=== PATIENT | female | born 1950 | race Hispanic/Latino ===

== ENCOUNTER → 2017-09-12 | Outpatient (CLI) | payer MEDICARE ==
[~2017-09-12] MED LIST: VASOTEC10 MG PO
--- NOTE | 2017-09-12 11:08 | Diagnostic Imaging Report ---
PROCEDURE:CHEST 2 VIEWS TECHNIQUE:PA and lateral chest INDICATION:Asthma COMPARISON:Patients [facility], , CHEST 2 VIEWS, 08/16/2016, 12:20. FINDINGS: Lungs are clear and symmetrically inflated. No pleural effusions. Normal heart size, mediastinal contour and pulmonary vasculature. Intact skeleton. CONCLUSION: No acute abnormality or interval change from August 2016. Dictated by: Kevin Sevilla M.D. on 09/12/2017 at 11:09 Electronically approved by: Kevin Sevilla M.D. on 09/12/2017 at 11:09
--- NOTE | 2017-09-12 11:09 | Diagnostic Imaging Report ---
PROCEDURE:HIPS BILAT 3-4VWS (+/- PELVIS) TECHNIQUE:AP pelvis with AP and oblique views of each hip INDICATION:Bilateral hip pain COMPARISON:None. FINDINGS: The pelvis, hips and regional skeleton are intact and in anatomic alignment. Joint space is maintained. No periosteal reaction or erosion. CONCLUSION: No acute abnormality. Dictated by: Kevin Sevilla M.D. on 09/12/2017 at 11:10 Electronically approved by: Kevin Sevilla M.D. on 09/12/2017 at 11:10
== END | disposition home or self-care (01) ==
LOC: RAD 10:14
PROVIDERS: ATTEND Family Medicine
DX: R06.02 Shortness of breath (principal); M25.552 Pain in left hip; M25.551 Pain in right hip
CPT/HCPCS: 71046; 73522

== ENCOUNTER → 2017-11-13 | Outpatient (CLI) | payer MEDICARE, OTHER ==
[~2017-11-13] MED LIST changes: +ALBUTEROL/IPRATROPIUM 3 ML NEB ONE
--- NOTE | 2017-11-13 10:31 | Diagnostic Imaging Report ---
PROCEDURE:CT CHEST WITHOUT CONTRAST COMPARISON:[facility], DX, CHEST 2 VIEWS, 09/12/2017, 11:40. INDICATIONS:Asthma and pneumonia TECHNIQUE: Routine protocol Volumetric CT chest. No intravenous or enteric contrast. Multiplanar reformatted images. DLP: 418.88 FINDINGS: Lungs: Minimal dependent bibasilar subsegmental atelectasis. 2 right middle lobe nodules (images 58 and 60, series 3) the largest measuring 0.4 cm. Lungs otherwise clear. Airways: Expiration phase imaging. Mild distal bronchial wall thickening (for example left lower lobe image 58, series 3). Pleura: Normal Lymph nodes: Normal Pulmonary arteries: Vein diameter 2.5 cm. Mild intraparenchymal pulmonary artery prominence relative to the bronchus. Thoracic aorta and great vessels: Normal caliber. Mild arch atherosclerosis. Heart and pericardium: Upper limits of normal heart size. Prominent pericardial fat pads. Otherwise, normal. No pleural effusion. Mild left coronary artery calcification. Subdiaphragmatic organs: Calcified 0.9 cm splenic artery aneurysm. Imaged portions are otherwise normal. Skeleton: Intact. Mild multilevel degenerative disc disease. CONCLUSION: 1. Mild bronchial wall thickening which may be secondary to reactive airways disease or bronchitis. No evidence of pneumonia. 2. Sub-5 mm right middle lobe pulmonary nodules. These are nonspecific, without needed followup according to 2017 Fleischner society guidelines. 3. Mild intraparenchymal pulmonary artery prominence suggesting pulmonary hypertension. Dictated by: Kevin Sevilla M.D. on 11/13/2017 at 10:34 Electronically approved by: Kevin Sevilla M.D. on 11/13/2017 at 10:34
== END ==
LOC: CT 09:20
PROVIDERS: ATTEND Internal Medicine
DX: J45.40 Moderate persistent asthma, uncomplicated (principal); Z87.01 Personal history of pneumonia (recurrent)
CPT/HCPCS: 71250; 93005; 94060; 94727; 94729

== ENCOUNTER → 2018-03-23 | Outpatient (CLI) | payer MEDICARE, OTHER ==
[~2018-03-23] MED LIST changes: -ALBUTEROL/IPRATROPIUM 3 ML NEB ONE
--- NOTE | 2018-03-23 12:40 | Diagnostic Imaging Report ---
EXAMINATION: Transabdominal pelvic ultrasound. CLINICAL INDICATION: Pelvic and perineal pain COMPARISON: None DISCUSSION: Transverse and sagittal transabdominal images of the pelvis were obtained using the urinary bladder as a sonographic window. The uterus is neutral in position and normal in size measuring 9.1 x 2.8 x 4.7 cm. The endometrial stripe is homogeneous, normal in thickness and measures 0.2 centimeters. The ovaries are normal in size and echogenicity. The right ovary measures 2.3 x 1.1 x 1.2 centimeters. The left ovary measures 1.5 x 0.9 x 1.4 centimeters. No free fluid or pelvic masses are seen. IMPRESSION: Unremarkable pelvic ultrasound. Signed by: Dr. Damion Meyer M.D. on 03/23/2018 12:37 PM
== END ==
LOC: US 11:32
PROVIDERS: ATTEND Internal Medicine Cardiovascular Disease
DX: R10.2 Pelvic and perineal pain (principal)
CPT/HCPCS: 76856

== ENCOUNTER → 2018-04-12 | Outpatient (CLI) | payer MEDICARE, OTHER ==
--- NOTE | 2018-04-12 13:22 | Diagnostic Imaging Report ---
SACRUM AND COCCYX X-RAY - 4 VIEWS HISTORY: ^[id number] ^1215 ^Radiculopathy, thoracolumbar region COMPARISON: None available. FINDINGS: Bones: No acute displaced fracture. Osseous alignment is within normal limits. Joints: Moderate degenerative changes at L5-S1. Mild degenerative changes of the sacroiliac joints. The sacrum and coccyx appear unremarkable. Soft tissues: Facet arthrosis at L5-S1 resulting in foraminal narrowing. IMPRESSION: Moderate degenerative changes of facet arthrosis at L5-S1. Degenerative changes of the sacroiliac joints. No acute fractures of the sacrum or coccyx. Signed by: Dr. Rin Fernandez M.D. on 04/12/2018 1:18 PM
== END ==
LOC: RAD 11:03
PROVIDERS: ATTEND Family Medicine
DX: M54.15 Radiculopathy, thoracolumbar region (principal)
CPT/HCPCS: 72220

== ENCOUNTER → 2019-08-07 | Day surgery (SDC) | payer MEDICARE, OTHER ==
[2019-08-05 14:09] LABS: BASOPHILS % 0.6 % (0.0-1.0); EOSINOPHILS # (AUTO) 0.2 (0.0-0.4); EOSINOPHILS % 2.5 % (0.0-6.0); HEMATOCRIT 39.7 % (34.2-44.1); HEMOGLOBIN 12.6 g/dL (12.0-16.0); LYMPHOCYTES # (AUTO) 2.4 (1.0-3.2); LYMPHOCYTES % 36.2 % (18.0-39.1); MEAN CORPUSCULAR HEMOGLOBIN 29.2 pg (28-32); MEAN CORPUSCULAR HGB CONC 31.7 g/dL (31-35); MEAN CORPUSCULAR VOLUME 92.1 fL (81-99); MONOCYTES # (AUTO) 0.5 (0.2-0.8); MONOCYTES % 7.7 % (4.4-11.3); NEUTROPHILS # (AUTO) 3.4 (2.1-6.9); NEUTROPHILS % 52.7 % (38.7-80.0); PLATELET COUNT 247 x10e3/uL (140-360); RED BLOOD COUNT 4.31 x10e6/uL (3.6-5.1); RED CELL DISTRIBUTION WIDTH 13.8 % (11.7-14.4)
[2019-08-05 14:21] LABS: INR 0.95; PROTHROMBIN TIME 13.2 seconds (11.9-14.5)
[2019-08-05 14:22] LABS: PARTIAL THROMBOPLASTIN TIME 32.5 seconds (23.8-35.5)
[2019-08-05 14:28] LABS: ALANINE AMINOTRANSFERASE 20 IU/L (0-55); ALBUMIN 3.5 g/dL (3.5-5.0); ALBUMIN/GLOBULIN RATIO 0.9 (0.8-2.0); ALKALINE PHOSPHATASE 83 IU/L (40-150); ANION GAP 10.4 mmol/L (8-16); BLOOD UREA NITROGEN 15 mg/dL (7-26); BUN/CREATININE RATIO 18 (6-25); CALCIUM 9.5 mg/dL (8.4-10.2); CARBON DIOXIDE 31 mmol/L (22-29); CHLORIDE 105 mmol/L (98-107); CREATININE, SERUM 0.84 mg/dL (0.57-1.11); EST GLOMERULAR FILTRATION RATE > 60 ML/MIN (60-); GLUCOSE 90 mg/dL (74-118); POTASSIUM 4.4 mmol/L (3.5-5.1); SODIUM 142 mmol/L (136-145)
[2019-08-05 14:39] LABS: CHOL/HDL RATIO 4.1 (3.0-3.6)
[2019-08-07] VITALS (8 sets, daily range): BP systolic 128–156; BP diastolic 75–88
[~2019-08-07] VITALS: Ht 157.5 cm; Wt 93.4 kg
[~2019-08-07] MED LIST changes: +FENTANYL CITRATE/PF 100MCG/2 ML INJ ONE; +HEPARIN SOD/SOD CHLORIDE 2,000 ML ONE; +IOPAMIDOL 370 MG/ML 200 ML INFUS..BTL INJ ONE; +LIDOCAINE HCL 2% LOCAL 20 ML VIAL ONE; +LISINOPRIL10 MG PO; +METOPROLOL SUCC25 MG PO; +MIDAZOLAM HCL 2 MG/2 ML VIAL ONE; +SODIUM CHLORIDE 0.9% 1000ML 1,000 ML ONE; +VERAPAMIL HCL 2.5 MG/ML 2 ML VIAL ONE
--- OUTSIDE RECORDS SUMMARY | 2019-08-07 08:17 | XMS REPORT ---
Author Author [facility] Address Unknown Phone Unavailable Care Team Providers Care Flue Blower Name Role Phone BRAXTON BRADYH Unavailable Unavailable DEBBIE BRADY Unavailable Unavailable CHIARA, HWANG Unavailable Unavailable Problems This patient has no known problems. Allergies, Adverse Reactions, Alerts This patient has no known allergies or adverse reactions. Medications This patient has no known medications. Results Test Description Test Time Test Comments Text Results Atomic Results Result Comments SCR MAMM BILATERAL CRYSTAL CAD DIGITAL 2018-10-16 14:06:28 - SCR MAMM BILATERAL CRYSTAL CAD DIGITALBILATERAL DIGITAL SCREENING MAMMOGRAM 3D/2D WITH CAD: 10/16/2018CLINICAL: Asymptomatic. Digital breast tomosynthesis was performed in addition to routine CC and MLO views. Current mammographic images were evaluated by either a [employer] M-Vu or a [employer] ImageChecker CAD (computer aided detection system). Comparison is made to exams dated 09/04/2017 mammogram, 2016 mammogram, and 04/07/2015 mammogram - [facility]. The tissue of both breasts is heterogeneously dense. This may lower the sensitivity of mammography. There are benign calcifications in both breasts. There also is a biopsy clip in the right breast. No suspicious mass, architectural distortion, malignant type calcification, or lymph node abnormality detected. Breast architecture is stable when compared to the prior exams.IMPRESSION: BENIGNThere is no mammographic evidence of malignancy. Resume annual screening mammography in one year. Axel Gottlieb M.D. et/:10/16/2018 14:06:28 [employer] Inspector: Evangelina SANTANA, [facility] sent: BIRADS 1-2 Normal Mammogram BI-RADS: 2 Benign SACRUM COCCYX 2018-04-12 12:56:00 [place] [id number] Patient Name: FABIANO OMER MR #: [id number] : 1950 Age/Sex: 68/F Req #: [id number] Adm Physician: Ordered by: BALJIT BRADY MD Report #: [id number] Location: [facility] Room/Bed: Procedure: [id number] DX/SACRUM COCCYX Exam Date: 04/12/18 Exam Time: 1215 REPORT STATUS: Signed SACRUM AND COCCYX X-RAY - 4 VIEWS HISTORY: [id number] 1215 Radiculopathy, thoracolumbar region COMPARISON: None available. FINDINGS: Bones: No acute displaced fracture. Osseous alignment is within normal limits. Joints: Moderate degenerative changes at L5-S1. Mild degenerative changes of the sacroiliac joints. The sacrum and coccyx appear unremarkable. Soft tissues: Facet arthrosis at L5-S1 resulting in foraminal narrowing. IMPRESSION: Moderate degenerative changes of facet arthrosis at L5-S1. Degenerative changes of the sacroiliac joints. No acute fractures of the sacrum or coccyx. Signed by: Dr. Felisha Heart M.D. on 04/12/2018 1:18 PM Dictated By: FELISHA HEART MD 1318 Transcribed By: STARR on 04/12/18 1318 COPY TO: BALJIT BRADY MD US PELVIS COMPLETE NON OB 2018-03-23 12:36:00 [place] [id number] Patient Name: FABIANO OMER MR #: [id number] : 1950 Age/Sex: 67/F Req #: [id number] Adm Physician: Ordered by: DEBBIE BRADY MD Report #: [id number] Location: US Room/Bed: Procedure: [id number] US/US PELVIS COMPLETE NON OB Exam Date: Exam Time: REPORT STATUS: Signed EXAMINATION: Transabdominal pelvic ultrasound. CLINICAL INDICATION: Pelvic and perineal pain COMPARISON: None DISCUSSION: Transverse and sagittal transabdominal images of the pelvis were obtained using the urinary bladder as a sonographic window. The uterus is neutral in position and normal in size measuring 9.1 x 2.8 x 4.7 cm. The endometrial stripe is homogeneous, normal in thickness and measures 0.2 centimeters. The ovaries are normal in size and echogenicity. The right ovary measures 2.3 x 1.1 x 1.2 centimeters. The left ovary measures 1.5 x 0.9 x 1.4 centimeters. No free fluid or pelvic masses are seen. IMPRESSION: Unremarkable pelvic ultrasound. Signed by: Dr. Arsenio Reilly M.D. on 03/23/2018 12:37 PM Dictated By: ARSENIO REILLY MD 1237 Transcribed By: STARR on 03/23/18 1237 COPY TO: DEBBIE BRADY MD CT CHEST WO 2017-11-13 10:34:00 [place] [address] Patient Name: FABIANO OMER MR #: [id number] : 1950 Age/Sex: 67/F Req #: [id number] Adm Physician: Ordered by: ERI GUADARRAMA MD Report #: [id number] Location: CT Room/Bed: Procedure: [id number] CT/CT CHEST WO Exam Date: 11/13/17 Exam Time: 1005 REPORT STATUS: Signed PROCEDURE: CT CHEST WITHOUT CONTRAST COMPARISON: [facility], DX, CHEST 2 VIEWS, 09/12/2017, 11:40. INDICATIONS: Asthma and pneumonia TECHNIQUE: Routine protocol Volumetric CT chest. No intravenous or enteric contrast. Multiplanar reformatted images. DLP: 418.88 FINDINGS: Lungs: Minimal dependent bibasilar subsegmental atelectasis. 2 right middle lobe nodules (images 58 and 60, series 3) the largest measuring 0.4 cm. Lungs otherwise clear. Airways: Expiration phase imaging. Mild distal bronchial wall thickening (for example left lower lobe image 58, series 3). Pleura: Normal Lymph nodes: Normal Pulmonary arteries: Vein diameter 2.5 cm. Mild intraparenchymal pulmonary artery prominence relative to the bronchus. Thoracic aorta and great vessels: Normal caliber. Mild arch atherosclerosis. Heart and pericardium: Upper limits of normal heart size. Prominent pericardial fat pads. Otherwise, normal. No pleural effusion. Mild left coronary artery calcification. Subdiaphragmatic organs: Calcified 0.9 cm splenic artery aneurysm. Imaged portions are otherwise normal. Skeleton: Intact. Mild multilevel degenerative disc disease. CONCLUSION: 1. Mild bronchial wall thickening which may be secondary to reactive airways disease or bronchitis. No evidence of pneumonia. 2. Sub-5 mm right middle lobe pulmonary nodules. These are nonspecific, without needed followup according to 2017 Fleischner society guidelines. 3. Mild intraparenchymal pulmonary artery prominence suggesting pulmonary hypertension. Dictated by: Martine Sevilla M.D. on 11/13/2017 at 10:34 Electronically approved by: Martine Sevilla M.D. on 11/13/2017 at 10:34 Dictated By: MARTINE SEVILLA MD 1034 Transcribed By: VALENTINA on 11/13/17 1034 COPY TO: ERI GUADARRAMA MD CHEST 2 VIEWS [place] [address] Patient Name: FABIANO OMER MR #: [id number] : 1950 Age/Sex: 67/F Req #: [id number] Adm Physician: Ordered by: BALJIT BRADY MD Report #: [id number] Location: [facility] Room/Bed: Procedure: [id number] DX/CHEST 2 VIEWS Exam Date: 09/12/17 Exam Time: 1045 REPORT STATUS: Signed PROCEDURE: CHEST 2 VIEWS TECHNIQUE: PA and lateral chest INDICATION: Asthma COMPARISON: [facility], DX, CHEST 2 VIEWS, 08/16/2016, 12:20. FINDINGS: Lungs are clear and symmetrically inflated. No pleural effusions. Normal heart size, mediastinal contour and pulmonary vasculature. Intact skeleton. CONCLUSION: No acute abnormality or interval change from August 2016. Dictated by: Martine Sevilla M.D. on 09/12/2017 at 11:09 Electronically approved by: Martine Sevilla M.D. on 09/12/2017 at 11:09 Dictated By: MARTINE SEVILLA MD 110 Transcribed By: VALENTINA on 09/12/17 110 COPY TO: BALJIT BRADY MD HIPS BILAT 3-4VWS (+/- PELVIS) [place] [address] Patient Name: FABIANO OMER MR #: [id number] : 1950 Age/Sex: 67/F Req #: [id number] Adm Physician: Ordered by: BALJIT BRADY MD Report #: [id number] Location: [facility] Room/Bed: Procedure: [id number] DX/HIPS BILAT 3-4VWS (+/- PELVIS) Exam Date: Exam Time: REPORT STATUS: Signed PROCEDURE: HIPS BILAT 3-4VWS (+/- PELVIS) TECHNIQUE: AP pelvis with AP and oblique views of each hip INDICATION: Bilateral hip pain COMPARISON: None. FINDINGS: The pelvis, hips and regional skeleton are intact and in anatomic alignment. Joint space is maintained. No periosteal reaction or erosion. CONCLUSION: No acute abnormality. Dictated by: Martine Sevilla M.D. on 09/12/2017 at 11:10 Electronically approved by: Martine Sevilla M.D. on 09/12/2017 at 11:10 Dictated By: MARTINE SEVILLA MD 1110 Transcribed By: VALENTINA on 09/12/17 1110 COPY TO: BALJIT BRADY MD
--- NOTE | 2019-08-07 12:05 | NUR ---
1205pReceived pt to room #10, Identiferx2,bedside report received from JAUN Pederson. Alert oriented and appropriate, PERRLA, respirations even and unlabored to room air. Pulses x4 extremities equal and strong. Pedal pulses PT/DP X4Cap fill brisk < 3 sec. Rt TR band approach ok to reduce air at 1250pm No gross issues pain,pallor,pressure or dysrhythmia.Ok for dc home in 3hrs. Skin warm and dry integrity appears D/I. Left hand IV 20g infusing at 100cchr, presents healthy w/o s/s of infiltration or complaint. Abdomen soft and supple. pt offered toileting, denies need to urinate or defecate. No personal affects with patient. Family daughter at bedside speaks Lao.. Pt and family verbalizes understanding of POC. Currently w/o complaint of pain or need. Patient introduced to cath team and brief summary provided to team. andrea/jaun
--- NOTE | 2019-08-07 13:00 | NUR ---
1300pRADIAL Compression removal: Initial Cuff volume 13 cc 1300 -2cc Removed No hematoma/bleeding noted with normal neurovascular function. 1315 -5cc Removed No hematoma/ bleeding noted with normal neurovascular function. 1330 -6 cc Removed No hematoma/bleeding noted with normal neurovascular function. Air removal completed. Stasis achieved sterile 2x2,Tegaderm, Coban dressing No hematoma, bleeding noted with normal neurovascular function. Wrist splint in place. Pt instructed on POC. Ds/Rn
--- NOTE | 2019-08-07 14:15 | NUR ---
1415p Pt meets DC criteria.Rt Tr band assessed for s/s of complication and presence of hematoma. Skin warm, dry, no discolor, and pulses present. IV removed from left hand.. Distal tip appears intact. VS WNL. Pt denies pain, sob, or need at this time. Family at bedside. Review of discharge paperwork and follow up instructions. verbalized understanding. Pt to wheelchair and transported to front of hospital. No issues pain pallor pressure or dysrhythmia. Normal neurovascular function aware of importance of f/o care. ds/rn
--- NOTE | 2019-08-07 14:42 | Operative Report ---
DATE OF PROCEDURE: 08/07/2019 SURGEON: Robbie Kruger MD PROCEDURE INDICATION: Angina pectoris and abnormal stress test. PROCEDURES PERFORMED: 1. Left heart catheterization. 2. Selective coronary angiography. 3. Right radial TR band hemostasis. PROCEDURE COMPLICATIONS: None. ESTIMATED BLOOD LOSS: Less than 50 mL. PROCEDURE SUMMARY: After consent was obtained, the patient was prepped and draped in a sterile fashion. The right radial site was locally infiltrated with 2% lidocaine and access was obtained with 5-Ukrainian outer diameter slender sheath advanced. A TIG catheter was used for engagement of left main and then the right coronary artery angiography was performed in multiple views and the following findings with end-diastolic pressure of 28. 1. Aortic pressure is 160/81. 2. Left main is short in length, large in caliber with luminal irregularities noted. Gives an LAD and circumflex. LAD and circumflex both have the respective diagonal septal branches for LAD and circumflex obtuse marginals total 3, small in caliber with luminal irregularities noted throughout these 2 vessels and branches. 3. The right coronary artery has luminal irregularities gives 2 RV marginals and terminal RPDA and RPLV. 4. The LV pressure is 166/15 with end-diastolic pressure of 28. 5. Aortic pressure is 121/81. 6. No left ventriculogram was performed. CONCLUSION: Luminal irregularities without obstructive coronary artery disease noted throughout the coronary tree. Recommend medical management. Robbie Kruger MD AFV/MODL /[id number]
== END | disposition home or self-care (01) ==
LOC: CATH LAB 07:57
PROVIDERS: ATTEND Internal Medicine Cardiovascular Disease
DX: I20.9 Angina pectoris, unspecified (principal); R00.2 Palpitations; I10 Essential (primary) hypertension; E78.5 Hyperlipidemia, unspecified; E66.01 Morbid (severe) obesity due to excess calories; Z01.812 Encounter for preprocedural laboratory examination; Z68.37 Body mass index [BMI] 37.0-37.9, adult; Z82.49 Family history of ischemic heart disease and other diseases of the circulatory system
CPT/HCPCS: 36415; 80053; 80061; 85025; 85610; 85730; 93458; C1887; J2001; J2250; J3010; J7030; Q9967; 99152